=== PATIENT | female | born 1950 | race Caucasian/White ===

== ENCOUNTER 2018-02-18 10:16 | Observation (INO) | payer OTHER ==
[2018-02-15 11:53] LABS: BASOPHILS % 0.2 % (0.0-1.0); EOSINOPHILS # (AUTO) 0.1 (0.0-0.4); EOSINOPHILS % 1.1 % (0.0-6.0); HEMATOCRIT 39.1 % (34.2-44.1); HEMOGLOBIN 12.4 g/dL (12.0-16.0); LYMPHOCYTES % 23.4 % (18.0-39.1); MEAN CORPUSCULAR HGB CONC 31.7 g/dL (31-35); MEAN CORPUSCULAR VOLUME 94.7 fL (81-99); MONOCYTES # (AUTO) 1.2 (0.2-0.8); MONOCYTES % 9.6 % (4.4-11.3); NEUTROPHILS # (AUTO) 8.4 (2.1-6.9); NEUTROPHILS % 65.1 % (38.7-80.0); PLATELET COUNT 196 x10e3/uL (140-360); RED BLOOD COUNT 4.13 x10e6/uL (3.6-5.1); RED CELL DISTRIBUTION WIDTH 14.6 % (11.7-14.4)
[2018-02-15 12:16] LABS: ANION GAP 17.5 mmol/L (8-16); CALCIUM 9.7 mg/dL (8.4-10.2); CREATININE, SERUM 1.25 mg/dL (0.57-1.11); POTASSIUM 4.5 mmol/L (3.5-5.1)
--- NOTE | 2018-02-15 15:03 | Diagnostic Imaging Report ---
ADDENDUM #1 EXAMINATION: CHEST 2 VIEWS INDICATION: Chest pain. Right shoulder pain. Preop COMPARISON: None FINDINGS: TUBES and LINES: None. LUNGS: Lungs are well inflated. Mild chronic appearing changes in the lungs with elevation of the left hemidiaphragm. There is no evidence of pneumonia or pulmonary edema. PLEURA: No pleural effusion or pneumothorax. HEART AND MEDIASTINUM: The cardiomediastinal silhouette is unremarkable. BONES AND SOFT TISSUES: No acute osseous lesion. Soft tissues are unremarkable. UPPER ABDOMEN: No free air under the diaphragm. IMPRESSION: Mild chronic appearing changes in the lungs with elevation of the left hemidiaphragm. Signed by: Dr. Bayron Zhou M.D. on 02/26/2018 1:34 PM ORIGINAL REPORT EXAMINATION: CHEST 2 VIEWS INDICATION: Preop COMPARISON: None FINDINGS: TUBES and LINES: None. LUNGS: Lungs are well inflated. Mild chronic appearing changes in the lungs with elevation of the left hemidiaphragm. There is no evidence of pneumonia or pulmonary edema. PLEURA: No pleural effusion or pneumothorax. HEART AND MEDIASTINUM: The cardiomediastinal silhouette is unremarkable. BONES AND SOFT TISSUES: No acute osseous lesion. Soft tissues are unremarkable. UPPER ABDOMEN: No free air under the diaphragm. IMPRESSION: Mild chronic appearing changes in the lungs with elevation of the left hemidiaphragm. Signed by: Dr. Bayron Zhou M.D. on 02/15/2018 2:59 PM
[~2018-02-18] VITALS: Ht 160 cm; Wt 121.8 kg
[~2018-02-18 10:16] MED LIST: BACITRACIN 50,000 UNIT VIAL ONE; BUPIVACAINE 0.5%/EPI 30 ML SDV INJ ONE; COREG12.5 MG; [UNRECOGNIZED DRUG - CODE]
[2018-02-18] MEDS ORDERED: CEFAZOLIN SOD 2 GM/D5W 50ML 50 ML IV ONE (10:37)
[2018-02-18] MEDS ORDERED: METFORMIN HCL500 MG PO (10:54)
[2018-02-18] MEDS ORDERED: SPIRONOLACTONE25 MG PO (10:54)
[2018-02-18] MEDS ORDERED: GLIMEPIRIDE2 MG PO (10:54)
[2018-02-18] MEDS ORDERED: CRESTOR10 MG (10:54)
[2018-02-18] MEDS ORDERED: ASPIR 8181 MG (10:54)
[2018-02-18] MEDS ORDERED: NIFEDIPINE ER30 M1 (10:54)
[2018-02-18] MEDS ORDERED: CLOPIDOGREL75 MG PO (10:54)
[2018-02-18] MEDS ORDERED: HYDROCHLOROTHIA25 MG (10:54)
[2018-02-18] MEDS ORDERED: AMLODIPINE BESYL5 MG PO (10:54)
[2018-02-18] MEDS ORDERED: GABAPENTIN300 MG PO (10:54)
[2018-02-18] MEDS ORDERED: NALOXONE HCL INJ 0.4 MG/ML AMP IV PRN (15:15)
[2018-02-18] MEDS ORDERED: HYDROMORPHONE 0.2MG/ML-SOD CHL 30ML PCA SYRINGE IV PRN (15:15)
[2018-02-18] MEDS ORDERED: ONDANSETRON HCL INJ 2 MG/ML VIAL IV PRN (15:15)
[2018-02-18] MEDS ORDERED: ACETAMINOPHEN 1000 MG/100 ML IV PRN (15:15)
[2018-02-18] MEDS ORDERED: HYDRALAZINE HCL 20 MG/ML VIAL ONE (16:01)
[2018-02-18] MEDS ORDERED: MIDAZOLAM HCL 2 MG/2 ML VIAL ONE (18:06)
[2018-02-18] MEDS ORDERED: FENTANYL CITRATE/PF 100MCG/2 ML INJ ONE (18:06)
[2018-02-18 18:33] VITALS: BP_SYST 148; BP_SYST 159; BP_DIAS 67; BP_DIAS 68
[2018-02-18] MEDS ORDERED: PHENYLEPHRINE HCL 1% 10 MG/ML VIAL ONE (19:03)
[2018-02-18] MEDS ORDERED: LIDOCAINE HCL 2% LOCAL INJ 5 ML SDV VIAL INJ ONE (19:04)
[2018-02-18] MEDS ORDERED: DEXAMETHASONE SOD PHOS INJ 4 MG/ML VIAL ONE (19:04)
[2018-02-18] MEDS ORDERED: KETOROLAC TROMETHAMINE 30 MG/ML VIAL ONE (19:04)
[2018-02-18] MEDS ORDERED: ACETAMINOPHEN 1000 MG/100 ML IV ONE (19:04)
[2018-02-18] MEDS ORDERED: PROPOFOL IV EMULSION 10 MG/ML 20 ML VIAL ONE (19:04)
[2018-02-18] MEDS ORDERED: ONDANSETRON HCL INJ 2 MG/ML VIAL ONE (19:04)
[2018-02-18] MEDS ORDERED: ROCURONIUM BROMIDE 10 MG/ML 5ML VIAL ONE (19:04)
[2018-02-18] MEDS ORDERED: NEOSTIGMINE 5 MG/5ML SYR ONE (19:04)
[2018-02-18] MEDS ORDERED: SEVOFLURANE INHAL SOLN 250 ML PEN BTL ONE (19:04)
[2018-02-18] MEDS ORDERED: GLYCOPYRROLATE INJ 1MG/ 5 ML SYR ONE (19:04)
[2018-02-18] MEDS: SODIUM CHLORIDE 0.9% 1000ML 1,000 ML IV SCH (19:53)
[2018-02-18 20:00] VITALS: BP 119/55
[2018-02-18 20:43] VITALS: BP 119/55
[2018-02-18] MEDS: CEFAZOLIN SOD 1 GM VIAL IV SCH (20:43)
[2018-02-18] MEDS ORDERED: DEXTROSE 50% SYRINGE 50 ML IV PRN (21:15)
[2018-02-18] MEDS ORDERED: CALCIUM CARBONATE 500 MG CHEWABLE TABS PO PRN (21:15)
[2018-02-18] MEDS ORDERED: CEFAZOLIN SOD 1 GM/D5W 50ML 50 ML IV SCH (22:00)
[2018-02-19] VITALS: BP 112/53
[2018-02-19] MEDS: SODIUM CHLORIDE 0.9% 1000ML 1,000 ML IV SCH ×2 (02:10→11:09)
[2018-02-19 04:00] VITALS: BP 134/60
[2018-02-19] MEDS: CEFAZOLIN SOD 1 GM VIAL IV SCH ×2 (04:54→12:52)
[2018-02-19 05:29] LABS: HEMATOCRIT 32.7 % (34.2-44.1); HEMOGLOBIN 10.6 g/dL (12.0-16.0)
[2018-02-19] MEDS: INSULIN LISPRO 100 UNIT/1 ML 3ML VIAL SQ SCH ×3 (07:30→16:30)
[2018-02-19] MEDS: GABAPENTIN 300 MG CAP PO SCH ×2 (08:38→17:46)
[2018-02-19 08:40] VITALS: BP 114/56
[2018-02-19] MEDS ORDERED: GLIMEPIRIDE 2 MG TAB PO SCH (09:00)
[2018-02-19] MEDS ORDERED: NIFEDIPINE CR 30 MG TAB PO SCH (09:00)
[2018-02-19] MEDS ORDERED: AMLODIPINE BESYLATE 5 MG TAB PO SCH (09:00)
[2018-02-19] MEDS ORDERED: HYDROCHLOROTHIAZIDE 25 MG TAB PO SCH (09:00)
[2018-02-19] MEDS ORDERED: SPIRONOLACTONE 25 MG TAB PO SCH (09:00)
[2018-02-19] MEDS ORDERED: CLOPIDOGREL BISULFATE 75 MG TAB PO SCH (09:00)
[2018-02-19] MEDS ORDERED: ASPIRIN 81 MG CHEW TAB PO SCH (09:00)
[2018-02-19] MEDS ORDERED: METFORMIN HCL 500 MG TAB PO SCH (09:00)
[2018-02-19] MEDS ORDERED: CARVEDILOL 12.5 MG TAB PO SCH (09:00)
--- NOTE | 2018-02-19 09:28 | Diagnostic Imaging Report ---
Exam: C-arm fluoroscopy History: Right humeral head fracture Comparison: None available Findings: C-arm fluoroscopy was provided for operative fixation of the comminuted humeral head fracture. Single image was obtained showing a plate with multiple screws present. Fluoroscopy time: 3 seconds Air kerma: 34.66 mGy Impression: C-arm fluoroscopy for operative reduction of humeral head fracture. Signed by: Dr. Eric Carcamo DO on 02/19/2018 9:25 AM
[2018-02-19 09:40] LABS: ANION GAP 14.7 mmol/L (8-16); CALCIUM 9.4 mg/dL (8.4-10.2); CREATININE, SERUM 1.24 mg/dL (0.57-1.11); POTASSIUM 4.7 mmol/L (3.5-5.1)
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
[2018-02-19 10:11] VITALS: BP 114/56
[2018-02-19 12:27] VITALS: BP 100/50
--- NOTE | 2018-02-19 13:11 | Operative Report ---
DATE OF PROCEDURE: February 18, 2018 PREOPERATIVE DIAGNOSIS: Two-part right proximal humerus fracture. POSTOPERATIVE DIAGNOSIS: Three-part proximal humerus fracture on the right. PROCEDURE PERFORMED: Open reduction and internal fixation of right 3-part proximal humerus fracture on the right. SUPERVISOR PERSONNEL CLERKS: None. ANESTHESIA: General endotracheal intubation anesthesia. IV FLUIDS: Per the anesthesia record. DESCRIPTION OF PROCEDURE: Ms. Trevino was taken to the operating room and placed in the supine position on the operating table. Following induction of general anesthesia as well as endotracheal intubation, the patient's right upper extremity was examined under anesthesia. She was found to have bruise and ecchymosis involving the right arm. Fluoroscopic evaluation of the right upper extremity demonstrated an apparent 3-part proximal humerus fracture with medial displacement of the shaft in relation to the head. It was upon internal and external rotation views of the humerus as well as an axillary type view of the shoulder that demonstrated the injury to the greater tuberosity of the humerus. The patient's upper extremity was prepped and draped in standard surgical fashion. The case was begun by creating a deltopectoral approach to the shoulder. An incision was created from the clavicle overlying the coracoid and ran obliquely across the anterior aspect of the shoulder joint roughly in line with the deltopectoral groove. This incision was carried through skin only. Blunt dissection was used to deepen the incision. The cephalic vein was identified in the subcutaneous tissues at the deltopectoral groove. The vein was mobilized medially. The pectoralis muscle was then released from its insertion into the humerus. The dissection was carried proximally, and the fracture site was easily identified. The fracture site was cleaned thoroughly. A Soliman was used to rotate the head medially and the shaft laterally to allow for reduction of the patient's fracture site. A plate was then placed on the proximal humerus and used to capture the head and neck fragment and realign it with the shaft. Once this was achieved, the greater tuberosity fracture fragment was identified and found to be comminuted. Small fracture fragments were removed, and the larger fracture fragment was brought forward and held in a reduced position. A single 4-0 cannulated screw was inserted from lateral to medial capturing the greater tuberosity fracture fragment, reducing it and holding it in place. Sutures were also used to reinforce this reduction by weaving the suture through the rotator cuff tissue and tying it directly to the plate. Fluoroscopic evaluation at this time demonstrated realignment of the patient's injury with some continued comminution in the greater tuberosity region. Under direct visual evaluation, the rotator cuff was found to be firmly realigned with the proximal humerus. The wound was copiously irrigated. The deltopectoral interval was reapproximated. The remaining soft tissues were closed in a multilayer fashion. Sterile dressings were applied, and the patient was provided a shoulder immobilizer, awakened and taken to the postanesthesia care unit in stable condition. Job#: [id number]
[2018-02-19] MEDS ORDERED: HYDROCODONE/APAP 5MG-325MG TAB PO PRN (15:30)
[2018-02-19] MEDS ORDERED: NORCO 5-325 TA1 EACH PO (16:57)
[2018-02-19 17:01] VITALS: BP 121/64
[2018-02-19] MEDS ORDERED: SIMVASTATIN 40 MG TAB PO SCH ×3 (21:00)
== END 2018-02-19 18:46 | disposition home or self-care (01) ==
LOC: OR 10:16 → PACU V 15:10 → MED/SURG 17:24
PROVIDERS: ADMIT Specialist; ATTEND Specialist
DX: S42.231A 3-part fracture of surgical neck of right humerus, initial encounter for closed fracture (principal); Z95.5 Presence of coronary angioplasty implant and graft; G47.33 Obstructive sleep apnea (adult) (pediatric); I25.10 Atherosclerotic heart disease of native coronary artery without angina pectoris; E78.5 Hyperlipidemia, unspecified; I50.32 Chronic diastolic (congestive) heart failure; I13.0 Hypertensive heart and chronic kidney disease with heart failure and stage 1 through stage 4 chronic kidney disease, or unspecified chronic kidney disease; N18.3 Chronic kidney disease, stage 3 (moderate); E66.01 Morbid (severe) obesity due to excess calories; Z68.42 Body mass index [BMI] 45.0-49.9, adult; E11.22 Type 2 diabetes mellitus with diabetic chronic kidney disease; Z79.84 Long term (current) use of oral hypoglycemic drugs; Z91.81 History of falling; Z01.810 Encounter for preprocedural cardiovascular examination; Z01.812 Encounter for preprocedural laboratory examination; Z01.811 Encounter for preprocedural respiratory examination
CPT/HCPCS: 23680; 36415 ×3; 71046; 76001; 80048 ×2; 82948 ×2; 85014; 85018; 85025; 93005 ×2; 97116; 97139; 97162; 97530; C1713 ×6; G0378 ×2; G8978; G8979; J0360; J0690 ×2; J1100; J1885; J2001; J2250; J2370; J2405; J3490; J7030

== ENCOUNTER → 2018-04-26 | Outpatient (RCR) | payer OTHER ==
[~2018-04-26] MED LIST changes: +AMLODIPINE BESYL5 MG PO; +ASPIR 8181 MG; -BACITRACIN 50,000 UNIT VIAL ONE; -BUPIVACAINE 0.5%/EPI 30 ML SDV INJ ONE; +CLOPIDOGREL75 MG PO; +CRESTOR10 MG; +GABAPENTIN300 MG PO; +GLIMEPIRIDE2 MG PO; +HYDROCHLOROTHIA25 MG; +METFORMIN HCL500 MG PO; +NIFEDIPINE ER30 M1; +NORCO 5-325 TA1 EACH PO; +SPIRONOLACTONE25 MG PO
== END ==
LOC: PT 04-05 10:14
PROVIDERS: ATTEND Specialist
DX: S42.201D Unspecified fracture of upper end of right humerus, subsequent encounter for fracture with routine healing (principal); M25.511 Pain in right shoulder; M25.611 Stiffness of right shoulder, not elsewhere classified; M62.81 Muscle weakness (generalized)

== ENCOUNTER 2018-05-17 11:00 | Outpatient (RCR) | payer OTHER | END 2018-05-27 | LOC: PT 11:00 | PROVIDERS: ATTEND Specialist | DX: S42.201D Unspecified fracture of upper end of right humerus, subsequent encounter for fracture with routine healing (principal); M25.511 Pain in right shoulder; M25.611 Stiffness of right shoulder, not elsewhere classified; M62.81 Muscle weakness (generalized) | CPT/HCPCS: 97139 ==

== ENCOUNTER 2018-06-26 11:00 | Outpatient (RCR) | payer OTHER | END 2018-06-27 | LOC: PT 11:00 | PROVIDERS: ATTEND Specialist | DX: S42.201D Unspecified fracture of upper end of right humerus, subsequent encounter for fracture with routine healing (principal); M25.511 Pain in right shoulder; M25.611 Stiffness of right shoulder, not elsewhere classified; M62.81 Muscle weakness (generalized) | CPT/HCPCS: 97139 ==

== ENCOUNTER 2018-07-08 11:00 | Outpatient (RCR) | payer OTHER | END 2018-07-25 | LOC: PT 11:00 | PROVIDERS: ATTEND Specialist | DX: S42.201D Unspecified fracture of upper end of right humerus, subsequent encounter for fracture with routine healing (principal); M25.511 Pain in right shoulder; M25.611 Stiffness of right shoulder, not elsewhere classified; M62.81 Muscle weakness (generalized) | CPT/HCPCS: 97139 ==

== ENCOUNTER → 2019-11-13 | Day surgery (SDC) | payer OTHER ==
[2019-11-10 12:10] LABS: BASOPHILS % 0.3 % (0.0-1.0); EOSINOPHILS # (AUTO) 0.1 (0.0-0.4); EOSINOPHILS % 2.3 % (0.0-6.0); HEMATOCRIT 36.9 % (34.2-44.1); HEMOGLOBIN 11.6 g/dL (12.0-16.0); LYMPHOCYTES # (AUTO) 2.1 (1.0-3.2); LYMPHOCYTES % 36.1 % (18.0-39.1); MEAN CORPUSCULAR HEMOGLOBIN 29.6 pg (28-32); MEAN CORPUSCULAR HGB CONC 31.4 g/dL (31-35); MEAN CORPUSCULAR VOLUME 94.1 fL (81-99); MONOCYTES # (AUTO) 0.5 (0.2-0.8); NEUTROPHILS # (AUTO) 3.1 (2.1-6.9); NEUTROPHILS % 53.1 % (38.7-80.0); PLATELET COUNT 227 x10e3/uL (140-360); RED BLOOD COUNT 3.92 x10e6/uL (3.6-5.1); RED CELL DISTRIBUTION WIDTH 13.6 % (11.7-14.4)
[~2019-11-13] MED LIST changes: +ATORVASTATIN CA20 MG PO; +DEXMEDETOMIDINE HCL 2 ML ONE; +DEXMEDETOMIDINE HCL 200 MCG/2 ML VIAL ONE; +FENTANYL CITRATE/PF 100MCG/2 ML INJ ONE; +FUROSEMIDE40 MG PO; +INSPRA50 MG; +LIDOCAINE HCL 2% LOCAL INJ 5 ML SDV VIAL INJ ONE; +MAGNESIUM OXID400 MG PO; +METOCLOPRAMIDE HCL 10 MG/2ML VIAL ONE; +MIDAZOLAM HCL 2 MG/2 ML VIAL ONE; +PANTOPRAZOLE 40 MG 10ML VIAL ONE; +PROPOFOL IV EMULSION 10 MG/ML 20 ML VIAL ONE; +SODIUM CHLORIDE 0.9% 50ML 50 ML ONE
[2019-11-13 08:43] VITALS: BP 98/67
== END | disposition home or self-care (01) ==
LOC: ENDO 06:03
PROVIDERS: ATTEND Internal Medicine Gastroenterology
DX: K20.9 Esophagitis, unspecified (principal); K31.7 Polyp of stomach and duodenum; K29.70 Gastritis, unspecified, without bleeding; K31.89 Other diseases of stomach and duodenum; K21.9 Gastro-esophageal reflux disease without esophagitis; E78.00 Pure hypercholesterolemia, unspecified; E11.9 Type 2 diabetes mellitus without complications; G47.33 Obstructive sleep apnea (adult) (pediatric); I25.10 Atherosclerotic heart disease of native coronary artery without angina pectoris; I49.3 Ventricular premature depolarization; I11.0 Hypertensive heart disease with heart failure; I50.9 Heart failure, unspecified; I25.2 Old myocardial infarction; Z91.041 Radiographic dye allergy status; Z01.810 Encounter for preprocedural cardiovascular examination; Z01.812 Encounter for preprocedural laboratory examination; Z11.59 Encounter for screening for other viral diseases; Z79.02 Long term (current) use of antithrombotics/antiplatelets; Z79.82 Long term (current) use of aspirin; Z79.84 Long term (current) use of oral hypoglycemic drugs; Z68.34 Body mass index [BMI] 34.0-34.9, adult
CPT/HCPCS: 36415; 43239; 43450; 85025; 87635; 93005; C9113; J2001; J2250; J2704; J2765; J3010

== ENCOUNTER → 2019-11-21 | Outpatient (CLI) | payer OTHER ==
[~2019-11-21] MED LIST changes: -DEXMEDETOMIDINE HCL 2 ML ONE; -DEXMEDETOMIDINE HCL 200 MCG/2 ML VIAL ONE; -FENTANYL CITRATE/PF 100MCG/2 ML INJ ONE; -LIDOCAINE HCL 2% LOCAL INJ 5 ML SDV VIAL INJ ONE; -METOCLOPRAMIDE HCL 10 MG/2ML VIAL ONE; -MIDAZOLAM HCL 2 MG/2 ML VIAL ONE; -PANTOPRAZOLE 40 MG 10ML VIAL ONE; -PROPOFOL IV EMULSION 10 MG/ML 20 ML VIAL ONE; -SODIUM CHLORIDE 0.9% 50ML 50 ML ONE
--- NOTE | 2019-11-21 15:17 | Diagnostic Imaging Report ---
EXAM: CT Abdomen WITHOUT intravenous contrast INDICATION: COMPARISON: None. TECHNIQUE: The abdomen was scanned utilizing a multidetector helical scanner from the lung base to the iliac crest without administration of IV contrast. Coronal and sagittal reformations were obtained. Routine protocol was performed. IV CONTRAST: None ORAL CONTRAST: Gastrografin RADIATION DOSE: Total DLP: 809 mGy*cm Dose modulation, iterative reconstruction, and/or weight based adjustment of the mA/kV was utilized to reduce the radiation dose to as low as reasonably achievable. FINDINGS: LOWER THORAX: Coronary artery atherosclerotic calcifications. HEPATOBILIARY: No focal liver lesions. Unremarkable gallbladder. SPLEEN: No splenomegaly. PANCREAS: No focal masses or ductal dilatation. ADRENALS: No adrenal nodules. KIDNEYS/URETERS: No hydronephrosis, stones, or solid mass lesions. 1.9 cm left lower pole renal cyst. PERITONEUM / RETROPERITONEUM: No free air or fluid. LYMPH NODES: No lymphadenopathy. VESSELS: Scattered atherosclerotic calcifications of the nonaneurysmal abdominal aorta. GI TRACT: No distention or wall thickening. BONES AND SOFT TISSUES: No acute osseous injury. Grade 1 anterolisthesis at L4-5. IMPRESSION: No acute findings in the abdomen or pelvis. Specifically, no abdominal mass causing extrinsic compression to the stomach. Signed by: Samantha Ingram MD on 11/21/2019 3:14 PM
== END ==
LOC: CT 12:18
PROVIDERS: ATTEND Internal Medicine Gastroenterology
DX: K31.89 Other diseases of stomach and duodenum (principal)
CPT/HCPCS: 74150

== ENCOUNTER → 2024-07-02 | Day surgery (SDC) | payer OTHER ==
[2024-06-25 12:16] LABS: BASOPHILS % 0.3 % (0.0-1.0); EOSINOPHILS # (AUTO) 0.2 (0.0-0.4); EOSINOPHILS % 3.5 % (0.0-6.0); HEMATOCRIT 48.3 % (34.2-44.1); HEMOGLOBIN 14.7 g/dL (12.0-16.0); LYMPHOCYTES # (AUTO) 2.6 (1.0-3.2); LYMPHOCYTES % 39.3 % (18.0-39.1); MEAN CORPUSCULAR HEMOGLOBIN 30.8 pg (28-32); MEAN CORPUSCULAR HGB CONC 30.4 g/dL (31-35); MEAN CORPUSCULAR VOLUME 101.3 fL (81-99); MONOCYTES # (AUTO) 0.6 (0.2-0.8); MONOCYTES % 9.1 % (4.4-11.3); NEUTROPHILS # (AUTO) 3.1 (2.1-6.9); NEUTROPHILS % 47.6 % (38.7-80.0); PLATELET COUNT 184 x10e3/uL (140-360); RED BLOOD COUNT 4.77 x10e6/uL (3.6-5.1); RED CELL DISTRIBUTION WIDTH 13.9 % (11.7-14.4); WHITE BLOOD COUNT 6.56 x10e3/uL (4.8-10.8)
[~2024-07-02] MED LIST changes: +BUMETANIDE0.5 MG PO; +EFFIENT10 MG PO; +ENTRESTO 24 MG1 EACH PO; +JARDIANCE10 MG PO; +LIDOCAINE HCL 2% LOCAL INJ 5 ML SDV VIAL INJ ONE; +LYRICA75 MG PO; +METOPROLOL SUCC50 MG PO; +NEURONTIN300 MG PO; +NITROGLYCERIN0.4 MG SL; +PHENYLEPHRINE HCL 1% 10 MG/ML VIAL ONE; +PIPERACILLIN/TAZOBACTAM 3.375 GM VIAL ONE; +PROPOFOL IV EMULSION 10 MG/ML 20 ML VIAL ONE; +REPATHA SU140 MG/1 M SQ; +SODIUM CHLORIDE 0.9% 0 ML ONE; +SODIUM CHLORIDE 0.9% INJ 10 ML VIAL ONE; +ZETIA10 MG PO
[2024-07-02] MEDS: LACTATED RINGER'S 1,000 ML ONE (06:47)
[2024-07-02 10:25] VITALS: BP 131/74; PULSE 70; RESP 18; TEMP 97.5; O2SAT 99
== END | disposition home or self-care (01) ==
LOC: OR 06:18
PROVIDERS: ATTEND Internal Medicine Gastroenterology
DX: Z12.11 Encounter for screening for malignant neoplasm of colon (principal); D12.0 Benign neoplasm of cecum; D12.3 Benign neoplasm of transverse colon; K63.3 Ulcer of intestine; K64.8 Other hemorrhoids; G47.33 Obstructive sleep apnea (adult) (pediatric); E11.9 Type 2 diabetes mellitus without complications; I25.10 Atherosclerotic heart disease of native coronary artery without angina pectoris; I11.0 Hypertensive heart disease with heart failure; I50.9 Heart failure, unspecified; I44.0 Atrioventricular block, first degree; I49.9 Cardiac arrhythmia, unspecified; I25.2 Old myocardial infarction; E78.5 Hyperlipidemia, unspecified; E66.01 Morbid (severe) obesity due to excess calories; M06.9 Rheumatoid arthritis, unspecified; Z88.8 Allergy status to other drugs, medicaments and biological substances; Z91.041 Radiographic dye allergy status; Z01.810 Encounter for preprocedural cardiovascular examination; Z01.812 Encounter for preprocedural laboratory examination; Z79.84 Long term (current) use of oral hypoglycemic drugs; Z79.85 Long-term (current) use of injectable non-insulin antidiabetic drugs; Z79.899 Other long term (current) drug therapy; Z68.41 Body mass index [BMI] 40.0-44.9, adult; Z95.810 Presence of automatic (implantable) cardiac defibrillator; Z95.5 Presence of coronary angioplasty implant and graft; Z87.891 Personal history of nicotine dependence
CPT/HCPCS: 36415; 45380; 45385; 85025; 88305; 93005; J2003; J2371; J2704; J7121; J2543; J7050